=== PATIENT | female | born 1945 | race Caucasian/White ===

== ENCOUNTER 2019-01-02 09:44 | Emergency (ER) | payer MEDICARE ==
[~2019-01-02] VITALS: Ht 170.2 cm; Wt 69.1 kg
[2019-01-02 10:30] LABS: BASOPHILS % (AUTO) 0.6 % (0-1); EOSINOPHILS # (AUTO) 0.1 X10'3 (0-0.9); EOSINOPHILS % (AUTO) 1.9 % (0-6); HEMATOCRIT 44.2 % (35.0-45.0); HEMOGLOBIN 15.2 g/dl (12.0-16.0); LYMPHOCYTES # (AUTO) 1.5 X10'3 (1.1-4.8); LYMPHOCYTES % (AUTO) 20.9 % (21-51); MEAN CORPUSCULAR HGB CONC 34.4 g/dL (33.0-36.5); MEAN PLATELET VOLUME 8.2 FL (7.4-10.4); MONOCYTES # (AUTO) 0.5 X10'3 (0-0.9); MONOCYTES % (AUTO) 7.7 % (2-12); NEUTROPHILS # (AUTO) 4.9 X10'3 (1.8-7.7); NEUTROPHILS % (AUTO) 68.9 % (42-75); PLATELET COUNT 259 X10'3 (140-440); RED BLOOD COUNT 5.07 X10'6 (4.20-5.60); RED CELL DISTRIBUTION WIDTH 13.3 % (11.5-14.5)
[2019-01-02 10:42] LABS: ALANINE AMINOTRANSFERASE 23 U/L (12-78); ALBUMIN 4.2 G/DL (3.4-5.0); ALBUMIN/GLOBULIN RATIO 1.2 (1.1-1.5); ALKALINE PHOSPHATASE 84 IU/L (46-116); ANION GAP 9 (8-16); ASPARTATE AMINO TRANSFERASE 16 U/L (10-37); BILIRUBIN,TOTAL 0.3 MG/DL (0.1-1.0); BLOOD UREA NITROGEN 11 MG/DL (7-18); BUN/CREATININE RATIO 12.9 (6.6-38.0); CALCIUM 9.7 MG/DL (8.5-10.1); CHLORIDE 103 MMOL/L (99-107); CREATININE 0.85 MG/DL (0.40-0.90); GLUCOSE 117 MG/DL (70-104); POTASSIUM 3.9 MMOL/L (3.5-5.1); SODIUM 139 MMOL/L (135-145); TOTAL CARBON DIOXIDE 27.1 MMOL/L (24-32); TOTAL PROTEIN 7.8 G/DL (6.4-8.2); eGFR 66 ML/MIN
[2019-01-02 12:45] VITALS: BP 179/75
== END 2019-01-02 12:47 | disposition home or self-care (01) ==
LOC: ER 09:45
DX: G43.909 Migraine, unspecified, not intractable, without status migrainosus (principal); R06.00 Dyspnea, unspecified; I48.91 Unspecified atrial fibrillation; E03.9 Hypothyroidism, unspecified; Z90.49 Acquired absence of other specified parts of digestive tract; Z85.3 Personal history of malignant neoplasm of breast; Z60.2 Problems related to living alone
CPT/HCPCS: 20552; 36415; 71045; 80053; 84484; 85025; 93005; 99284

== ENCOUNTER 2019-03-12 06:21 | Emergency (ER) | payer MEDICARE ==
[~2019-03-12] VITALS: Ht 165.1 cm; Wt 70.0 kg
[2019-03-12] MEDS ORDERED: ALPRAZolam 0.5mg tablet PO ONE (07:05)
[2019-03-12] MEDS ORDERED: ALPR0.257 PO (07:08)
[2019-03-12 07:37] VITALS: BP 181/82
== END 2019-03-12 07:39 | disposition home or self-care (01) ==
LOC: ER 06:23
DX: F41.9 Anxiety disorder, unspecified (principal); I10 Essential (primary) hypertension; I48.91 Unspecified atrial fibrillation; E03.9 Hypothyroidism, unspecified; Z90.49 Acquired absence of other specified parts of digestive tract; Z85.3 Personal history of malignant neoplasm of breast; Z79.01 Long term (current) use of anticoagulants
CPT/HCPCS: 93005; 99283

== ENCOUNTER 2020-05-31 09:40 | Outpatient (CLI) | payer MEDICARE ==
[~2020-05-31 09:40] MED LIST: ALPR0.257 PO
== END 2020-05-31 23:59 | disposition home or self-care (01) ==
LOC: 64 CT 09:40
PROVIDERS: ATTEND Nurse Practitioner Family
DX: R51.9 Headache, unspecified (principal); R53.83 Other fatigue; R29.6 Repeated falls
CPT/HCPCS: 70450

== ENCOUNTER 2023-11-12 14:07 | Emergency (ER) | payer MEDICARE ==
[~2023-11-12] VITALS: Ht 160 cm; Wt 70.9 kg
[2023-11-12 17:09] LABS: BASOPHILS % (AUTO) 0.4 % (0-1); EOSINOPHILS # (AUTO) 0.2 X10'3 (0-0.9); EOSINOPHILS % (AUTO) 3.1 % (0-6); HEMATOCRIT 43.2 % (35.0-45.0); HEMOGLOBIN 14.5 g/dl (12.0-16.0); LYMPHOCYTES # (AUTO) 2.3 X10'3 (1.1-4.8); MEAN CORPUSCULAR HEMOGLOBIN 30.4 PG (27.0-31.0); MEAN CORPUSCULAR HGB CONC 33.7 g/dL (33.0-36.5); MEAN CORPUSCULAR VOLUME 90.3 FL (78-98); MEAN PLATELET VOLUME 8.5 FL (7.4-10.4); MONOCYTES # (AUTO) 0.7 X10'3 (0-0.9); MONOCYTES % (AUTO) 8.9 % (2-12); NEUTROPHILS # (AUTO) 4.6 X10'3 (1.8-7.7); NEUTROPHILS % (AUTO) 58.6 % (42-75); PLATELET COUNT 232 X10'3 (140-440); RED BLOOD COUNT 4.79 X10'6 (4.20-5.60); RED CELL DISTRIBUTION WIDTH 13.9 % (11.5-14.5); WHITE BLOOD COUNT 7.9 X10'3 (4.5-11.0)
[2023-11-12] MEDS: normal saline 1000ml 1,000 ML IV STA (17:18)
[2023-11-12 17:19] VITALS: BP 166/82; PULSE 52; RESP 16; O2SAT 97
[2023-11-12 17:32] LABS: ALBUMIN 4.1 G/DL (3.4-5.0); ANION GAP 8 (8-16); BLOOD UREA NITROGEN 13 MG/DL (7-18); CALCIUM 9.3 MG/DL (8.5-10.1); CHLORIDE 103 MMOL/L (99-107); CREATININE 0.93 MG/DL (0.40-0.90); GLUCOSE 96 MG/DL (70-104); POTASSIUM 3.7 MMOL/L (3.5-5.1); PRO BRAIN NATRIURETIC PEPTIDE 255 PG/ML (0-450); SODIUM 139 MMOL/L (135-145); TOTAL CARBON DIOXIDE 28.1 MMOL/L (24-32); eCRCL 42 ML/MIN; eGFR 58 ML/MIN
[2023-11-12 19:10] VITALS: TEMP 97.4
== END 2023-11-12 19:12 | disposition home or self-care (01) ==
LOC: ER 14:07
DX: R42 Dizziness and giddiness (principal); E86.0 Dehydration; R55 Syncope and collapse; I48.91 Unspecified atrial fibrillation; I10 Essential (primary) hypertension; E03.9 Hypothyroidism, unspecified; Z79.899 Other long term (current) drug therapy; Z90.49 Acquired absence of other specified parts of digestive tract
CPT/HCPCS: 36415; 71046; 80048; 83880; 84484; 85025; 93005; 96360; 99285; J7030

== ENCOUNTER 2024-10-11 08:56 | Outpatient (CLI) | payer MEDICARE ==
[2024-10-11] VITALS (19 sets, daily range): BP systolic 104–145; BP diastolic 49–74; PULSE 50–61
== END 2024-10-11 23:59 | disposition home or self-care (01) ==
LOC: CARD DIAG 08:56
PROVIDERS: ATTEND Internal Medicine Interventional Cardiology
DX: R42 Dizziness and giddiness (principal)
CPT/HCPCS: 93660

== ENCOUNTER 2024-11-07 19:24 | Emergency (ER) | payer MEDICARE ==
[~2024-11-07] VITALS: Ht 165.1 cm; Wt 63.2 kg
[2024-11-07 19:29] VITALS: TEMP 98.2
--- NOTE | 2024-11-07 19:58 | ELECTROCARDIOGRAPH REPORT ---
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
--- NOTE | 2024-11-07 20:06 | Physician Documentation ---
History of Present Illness ~ Chief Complaint: Mechanical Fall Stated Complaint: FALL W HEAD STRIKE ON THINNERS Time Seen by MD: 20:03 Primary Medical Doctor: Avril Dumont HPI Patient presents to the emergency room for evaluation of head strike on blood thinners. She is trying to hang something in his stool with a small step involved. She does not know quite how she fell but she ended up falling while doing this causing her to strike the back of her head on a carpeted floor. No loss of consciousness or no vomiting. She knows that she needs to have her head scan given her head strike on blood thinners therefore she is here. She states she would not be here unless she knew she had to come in to have head strike, blood thinners. She did strike her left knee that has ambulatory and that has not feel it needs to be addressed. She does endorse some neck pain. Tetanus within 5 Years?: No (unknown ) Medication Reconciliation Allergies: Coded Allergies: No Known Allergies (Unverified , 11/12/23) Scheduled Alprazolam (Alprazolam), 1 TAB PO Q12H PRN Past Medical History Past Medical History: Atrial Fibrillation, Hypertension, Bronchitis, Hypothyroidism, Breast Cancer Past Surgical History: cholecystectomy Alcohol Use: None Drug Use: none Lives with: Alone Lives In: Home Review of Systems ROS All review of systems negative except as per HPI Physical Exam Vital Signs: Temperature: 98.2, Heart Rate: 71, Respiratory Rate: 16, BP: 194/73, Pulse Oximetry: 100, Weight: 63.180 Oxygen Flow Rate: 0 Physical Exam General: Patient is awake, alert, oriented x4 in no acute distress and well appearing. In C-collar Head: Normocephalic and atraumatic. Eyes: Conjunctival normal. EOMI. PERRL. ENT: Mucous membranes moist. Neck: Supple, trachea is midline. In C-collar Chest: Clear to auscultation bilaterally without rales, rhonchi, or wheezes. There is no accessory muscle use or retractions. Cardiac: RRR without murmurs, gallops, or rubs. Abd: Soft, nondistended, nontender, with normoactive bowel sounds. No guarding, rebound, or rigidity. Extremities: Normal strength. Normal range of motion. No deformities or edema. Progress Results/Orders Results/Orders Orders - OLIVERIO JOHNSON MD Ct Head (11/07/24 19:40) Ct Cervical Spine (11/07/24 19:40) Chest,Single View (11/07/24 20:18) Monitor (11/07/24 19:42) Saline Lock (11/07/24 19:42) Oxygen (11/07/24 19:42) Hs Troponin I W Calculations (11/07/24 21:42) Hs Troponin I W Calculations (11/07/24 22:42) Completed Orders - OLIVERIO JOHNSON MD Ct Head (11/07/24 19:40) Ct Cervical Spine (11/07/24 19:40) Chest,Single View (11/07/24 20:18) Cbc/Diff (11/07/24 19:42) BMP (11/07/24 19:42) PBNP (11/07/24 19:42) Electrocardiogram (11/07/24 19:42) Hs Troponin I W Calculations (11/07/24 19:42) Vital Signs 11/07/24 11/07/24 19:29 20:19 Temp 98.2 Pulse 71 Resp 16 16 B/P (MAP) 194/73 Pulse Ox 100 O2 Flow Rate 0 Laboratory Tests Test 11/07/24 20:03 White Blood Count 6.9 Red Blood Count 4.54 Hemoglobin 13.7 Hematocrit 39.8 Mean Corpuscular Volume 87.5 Mean Corpuscular Hemoglobin 30.1 Mean Corpuscular Hemoglobin Concent 34.3 Red Cell Distribution Width 13.6 Platelet Count 222 Mean Platelet Volume 9.1 Neutrophils (%) (Auto) 66.2 Lymphocytes (%) (Auto) 22.5 Monocytes (%) (Auto) 9.2 Eosinophils (%) (Auto) 1.6 Basophils (%) (Auto) 0.5 Neutrophils # (Auto) 4.6 Lymphocytes # (Auto) 1.6 Monocytes # (Auto) 0.6 Eosinophils # (Auto) 0.1 Basophils # (Auto) 0.0 CBC Comment Sodium Level 134 L Potassium Level 3.5 Chloride Level 96 L Carbon Dioxide Level 29.4 Anion Gap 9 Blood Urea Nitrogen 9 Creatinine 0.92 H Estimated GFR/1.73 m2 59 BUN/Creatinine Ratio 9.8 L Glucose Level 108 H Calcium Level 9.2 Troponin I High Sensitivity 7 Pro-B-Type Natriuretic Peptide 170 Albumin 4.2 Chemistry Comments EKG/XRAY/CT/US/VASC/MRI EKG : Additional Comment EKG interpreted by myself shows time of 1955, rate 70, sinus rhythm, normal axis, no ST changes Medical Decision Making Differential Dx:Considerations: Include: Closed head injury, Cardiac injury, Fracture(s), Intraabdominal injury, Pneumothorax, Cerebral contusion, Pulmonary contusion, Spine injury, Tracheal injury, Urological injury, Vascular injury, Abrasion(s), Contusion(s), Foreign body(s), Hematoma(s), Laceration(s), Encephalopathy, Other Departure Disposition: 01 HOME / SELF CARE / HOMELESS Impression: Primary Impression: Fall Condition: Stable Discharge Instructions: Fall Prevention in the Home, Adult, [id number] Referrals: NO PRIMARY CARE PROVIDER (PCP) Signature Scribe Signature: No scribe Attestation: The note accurately reflects work and decisions made by me.Oliverio Johnson MD 11/07/24 20:46 OLIVERIO JOHNSON MD Nov 07, 2024 20:06
--- NOTE | 2024-11-07 20:11 | RADIOLOGY REPORT ---
EXAM: CT CT CERVICAL SPINE INDICATION: HEAD STRIKE, ON BLOOD THINNERS. TECHNIQUE: Non contrast axial images of the cervical spine have been obtained with coronal and sagittal reformatted images. CT scans at this facility use dose modulation, iterative reconstruction, and/or weight based dosing when appropriate to reduce radiation dose to as low as reasonably achievable. COMPARISON: CT CT HEAD on DOS: 11/07/24 FINDINGS: ANATOMY: Straightening of the normal cervical lordosis, which may be seen in the setting of patient positioning versus muscular spasm. VERTEBRAL BODIES: The vertebral bodies are normal in height and alignment. The dens is intact, the lateral masses of C1 are normally aligned, and the atlantodental interval is normal for age. vertebral body variant anatomy of C3- C4. SPINAL CANAL: No significant spinal canal stenosis. INTERVERTEBRAL DISCS: No CT findings to suggest traumatic disc herniation or acute hematoma. Degenerative change centered at C5-6 and C6-7. SOFT TISSUES: There is no prevertebral soft tissue swelling. OTHER: The partially visualized lung apices are clear. IMPRESSION: 1. No acute cervical
--- NOTE | 2024-11-07 20:12 | RADIOLOGY REPORT ---
EXAM: CT CT HEAD INDICATION: FALL W/ HEADSTRIKE, ON BLOOD THINNERS TECHNIQUE: CT images of the head were obtained without administration of IV contrast. CT scans at this facility use dose modulation, iterative reconstruction, and/or weight based dosing when appropriate to reduce radiation dose to as low as reasonably achievable. COMPARISON: CT HEAD on DOS: 05/31/20 FINDINGS: PARENCHYMA: No acute hemorrhage. There is no mass effect, midline shift, or herniation. There is preservation of the beal white differentiation. Mild scattered hypoattenuation along the periventricular, centrum semiovale, and deep white matter tracts, which are nonspecific however statistically most likely represent chronic microvascular ischemic change. VENTRICLES: No hydrocephalus. EXTRA-AXIAL SPACES: No extra-axial fluid collections. OTHER: The bony structures are intact. Mild scattered paranasal sinus mucosal thickening. Degenerative change of bilateral temporomandibular joints. IMPRESSION: 1. No CT evidence of an acute intracranial abnormality.
[2024-11-07 20:16] LABS: MEAN PLATELET VOLUME 9.1 FL (7.4-10.4); RED CELL DISTRIBUTION WIDTH 13.6 % (11.5-14.5)
[2024-11-07 20:32] LABS: CREATININE 0.92 MG/DL (0.40-0.90); PRO BRAIN NATRIURETIC PEPTIDE 170 PG/ML (0-450); TOTAL CARBON DIOXIDE 29.4 MMOL/L (24-32); eCRCL 45 ML/MIN; eGFR 59 ML/MIN
--- NOTE | 2024-11-07 20:32 | RADIOLOGY REPORT ---
EXAM: DI CHEST,SINGLE VIEW HISTORY: CP TECHNIQUE: 1 view of the chest COMPARISON: DI CHEST,TWO VIEWS on DOS: 11/12/23 FINDINGS/IMPRESSION: LUNGS: No pleural effusion, consolidation, or pneumothorax MEDIASTINUM: Unremarkable BONES: No acute osseous abnormality OTHER: None
[2024-11-07 21:04] VITALS: BP 180/73; PULSE 69; RESP 14; O2SAT 98
== END 2024-11-07 21:05 | disposition home or self-care (01) ==
LOC: ER 19:25
DX: R51.9 Headache, unspecified (principal); M54.2 Cervicalgia; I10 Essential (primary) hypertension; E03.9 Hypothyroidism, unspecified; I48.91 Unspecified atrial fibrillation; Z90.49 Acquired absence of other specified parts of digestive tract; Z79.01 Long term (current) use of anticoagulants; Z85.3 Personal history of malignant neoplasm of breast; Z79.899 Other long term (current) drug therapy; Z60.2 Problems related to living alone; W18.30XA Fall on same level, unspecified, initial encounter; Y93.89 Activity, other specified; Y92.89 Other specified places as the place of occurrence of the external cause; Y99.8 Other external cause status
CPT/HCPCS: 36415; 70450; 71045; 72125; 80048; 83880; 84484; 85025; 93005; 99285; L0172